=== PATIENT | male | born 1980 | race Caucasian/White ===

== ENCOUNTER 2019-03-19 19:50 | Emergency (ER) | payer OTHER ==
[~2019-03-19] VITALS: Ht 180.3 cm; Wt 111.1 kg
[~2019-03-19 19:50] MED LIST: ACETAMINOPHEN-1 EAC1 PO; CIPROFLOXACIN500 M1 PO; NAPROSYN500 MG PO; NOHOMEMEDICATIONS; NORCO 5-325 TA1 EACH PO; VICODIN 5-5001 EACH PO
[2019-03-19] MEDS ORDERED: MEDROLDOSEPACK PO (23:45)
[2019-03-19] MEDS ORDERED: ULTRAM 50MG TAB50 MG PO (23:45)
[2019-03-19] MEDS ORDERED: NAPROSYN500 MG PO (23:45)
[2019-03-19] MEDS ORDERED: NORFLEX100 MG PO (23:45)
[2019-03-20 00:23] VITALS: BP 127/78
== END 2019-03-20 | disposition home or self-care (01) ==
LOC: ER 19:50
DX: S39.012A Strain of muscle, fascia and tendon of lower back, initial encounter (principal); F17.210 Nicotine dependence, cigarettes, uncomplicated; Z98.52 Vasectomy status; X50.0XXA Overexertion from strenuous movement or load, initial encounter; Y93.89 Activity, other specified; Y92.89 Other specified places as the place of occurrence of the external cause; Y99.8 Other external cause status

== ENCOUNTER 2020-06-23 15:26 | Emergency (ER) | payer OTHER ==
[~2020-06-23] VITALS: Ht 180.3 cm; Wt 113.4 kg
[~2020-06-23 15:26] MED LIST changes: +MEDROLDOSEPACK PO; +NORFLEX100 MG PO; +ULTRAM 50MG TAB50 MG PO
[2020-06-23 18:07] VITALS: BP 122/74
== END 2020-06-23 18:00 | disposition home or self-care (01) ==
LOC: ER 15:26
DX: S61.411A Laceration without foreign body of right hand, initial encounter (principal); F17.210 Nicotine dependence, cigarettes, uncomplicated; W26.8XXA Contact with other sharp object(s), not elsewhere classified, initial encounter; Y93.89 Activity, other specified; Y92.69 Other specified industrial and construction area as the place of occurrence of the external cause; Y99.9 Unspecified external cause status